=== PATIENT | male | born 1940 | race Caucasian/White ===

== ENCOUNTER 2017-04-23 17:23 | Inpatient (IN) | payer MEDICARE ==
[~2017-04-23] VITALS: Ht 175.3 cm; Wt 85.7 kg
[2017-04-23 17:52] LABS: BASOPHILS % (AUTO) 0.3 % (0.0-5.0); EOSINOPHILS % (AUTO) 1.5 % (0.0-8.0); HEMATOCRIT 41.6 % (42-54); LYMPHOCYTES % (AUTO) 22.1 % (21.0-51.0); MEAN CORPUSCULAR HEMOGLOBIN 33.5 pg (27.0-33.0); MEAN CORPUSCULAR HGB CONC 34.3 g/dL (32.0-36.0); MEAN CORPUSCULAR VOLUME 97.6 fL (79-99); MONOCYTES % (AUTO) 8.7 % (3.0-13.0); NEUTROPHILS % (AUTO) 67.4 % (40.0-77.0); PLATELET COUNT (AUTO) 168 K/uL (130-400); RED BLOOD CELL COUNT(AUTO) 4.26 MIL/uL (4.50-6.20); RED CELL DISTRIBUTION WIDTH 16.6 % (11.0-15.5); WHITE BLOOD COUNT (AUTO) 7.9 K/uL (4.8-10.8)
[2017-04-23] MEDS ORDERED: SODIUM CHLORIDE 0.9% 1000ML 1,000 ML IV ONE (17:56)
[2017-04-23 18:02] LABS: CREATININE 1.1 mg/dL (0.5-1.5); POTASSIUM 3.4 mmol/L (3.5-5.1)
[2017-04-23 18:21] LABS: BILIRUBIN,DIRECT 0.4 mg/dL (0.0-0.3)
[2017-04-23 18:22] LABS: ALBUMIN 3.3 g/dL (3.5-5.0)
[2017-04-23 20:28] LABS: OCCULT BLOOD STOOL SINGLE ONLY NEGATIVE (NEGATIVE)
[2017-04-23] MEDS ORDERED: THIAMINE HCL 100 MG/ML 2ML VIAL ONE (20:38)
[2017-04-23] MEDS ORDERED: M.V.I. IV [ADULT] 10 ML VIAL IV ONE (20:39)
[2017-04-23] MEDS ORDERED: FOLIC ACID 5 MG/ML 10 ML VIAL ONE (20:40)
[2017-04-24] MEDS ORDERED: HYDRALAZINE HCL 20 MG/ML VIAL IV PRN (00:45)
[2017-04-24] MEDS ORDERED: ONDANSETRON HCL 4 MG/2 ML VIAL IV PRN (00:45)
[2017-04-24] MEDS ORDERED: IPRATROPIUM/ALBUTEROL SULFATE 3 ML SOLUTION IH PRN ×2 (00:45→10:09)
[2017-04-24] MEDS ORDERED: POTASSIUM CHLORIDE 20 MEQ ERTAB PO PRN ×2 (00:45→10:15)
[2017-04-24] MEDS ORDERED: MORPHINE SULFATE 2 MG/ML 1ML SYG IVP PRN ×2 (00:45)
[2017-04-24] MEDS ORDERED: LORAZEPAM 2 MG/ML 1 ML VIAL IVP PRN ×2 (00:45→10:30)
[2017-04-24] MEDS ORDERED: ONDANSETRON HCL 4 MG/2 ML VIAL IVP PRN ×2 (00:45→10:15)
[2017-04-24] MEDS ORDERED: LORAZEPAM 2 MG/ML 1 ML VIAL ONE (01:25)
[2017-04-24] MEDS ORDERED: CHLORDIAZEPOXIDE HCL 25 MG CAP ONE (05:33)
[2017-04-24 06:00] LABS: ALBUMIN 2.4 g/dL (3.5-5.0); BILIRUBIN,TOTAL 0.7 mg/dL (0.2-1.0); CREATININE 0.9 mg/dL (0.5-1.5); MAGNESIUM 0.9 mg/dL (1.80-2.40); TOTAL PROTEIN, SERUM 5.2 g/dL (6.0-8.3)
[2017-04-24] MEDS ORDERED: CHLORDIAZEPOXIDE HCL 25 MG CAP PO SCH (06:00)
[2017-04-24 06:02] LABS: POTASSIUM 2.8 mmol/L (3.5-5.1)
[2017-04-24 06:03] LABS: BASOPHILS % (AUTO) 0.4 % (0.0-5.0); EOSINOPHILS % (AUTO) 3.4 % (0.0-8.0); HEMATOCRIT 32.8 % (42-54); LYMPHOCYTES % (AUTO) 21.6 % (21.0-51.0); MEAN CORPUSCULAR HEMOGLOBIN 34.9 pg (27.0-33.0); MEAN CORPUSCULAR HGB CONC 35.9 g/dL (32.0-36.0); MEAN CORPUSCULAR VOLUME 97.3 fL (79-99); MONOCYTES % (AUTO) 8.7 % (3.0-13.0); NEUTROPHILS % (AUTO) 65.9 % (40.0-77.0); PLATELET COUNT (AUTO) 127 K/uL (130-400); RED BLOOD CELL COUNT(AUTO) 3.37 MIL/uL (4.50-6.20); RED CELL DISTRIBUTION WIDTH 16.7 % (11.0-15.5); WHITE BLOOD COUNT (AUTO) 7.5 K/uL (4.8-10.8)
[2017-04-24] MEDS ORDERED: LIDOCAINE HCL-MPF 1% 2ML VIAL ONE (06:06)
[2017-04-24] MEDS ORDERED: POTASSIUM CHLORIDE 20MEQ/100ML 100 ML IV ONE ×2 (06:07→07:25)
[2017-04-24 08:37] VITALS: BP 142/66
[2017-04-24] MEDS ORDERED: THIAMINE HCL 100 MG/ML 2ML VIAL IM SCH (09:00)
[2017-04-24] MEDS ORDERED: SODIUM CHLORIDE 0.9% 1000ML 1,000 ML IV ONE (09:52)
[2017-04-24] MEDS ORDERED: POTASSIUM CHLORIDE 20MEQ/100ML 100 ML IV PRN (10:15)
[2017-04-24] MEDS ORDERED: GLUCAGON 1MG KIT 1 MG ML IM PRN (10:15)
[2017-04-24] MEDS ORDERED: MAGNESIUM SULFATE 1 GM in SODIUM CHLORIDE 0.9% 50 ML IV SCH (10:15)
[2017-04-24] MEDS ORDERED: ZOLPIDEM TARTRATE 5 MG TAB PO PRN (10:15)
[2017-04-24] MEDS ORDERED: POTASSIUM CHLORIDE 10% ELIXIR 20 MEQ/15 ML UDCUP PO PRN (10:15)
[2017-04-24] MEDS ORDERED: LIDOCAINE HCL-MPF 1% 2ML VIAL IJ PRN (10:15)
[2017-04-24] MEDS ORDERED: CLONIDINE HCL 0.1 MG TABLET PO PRN (10:15)
[2017-04-24] MEDS ORDERED: DEXTROSE 50%-WATER 50 ML DISP.SYRIN IV PRN (10:15)
[2017-04-24] MEDS: FOLIC ACID 1 MG TABLET PO SCH (10:27)
[2017-04-24] MEDS: MULTIVITAMIN TABLET PO SCH (10:27)
[2017-04-24] MEDS: SODIUM CHLORIDE 0.9% 1000ML 1,000 ML IV SCH (10:28)
[2017-04-24] MEDS: FAMOTIDINE 20MG TAB 20 MG TAB PO SCH ×2 (10:28→20:06)
[2017-04-24] MEDS ORDERED: POTA20TA12 PO (10:56)
[2017-04-24] MEDS ORDERED: LEVE500T8 PO (10:56)
[2017-04-24] MEDS ORDERED: LOSA1TAB37 PO (10:56)
[2017-04-24] MEDS ORDERED: ASPI-1026 PO (10:56)
[2017-04-24] MEDS ORDERED: TAMS0.4C32 PO (10:56)
[2017-04-24] MEDS ORDERED: ALLO300T2 PO (10:56)
[2017-04-24] MEDS ORDERED: METO50TA18 PO (10:56)
[2017-04-24] MEDS ORDERED: COLC0.6C3 PO (10:56)
[2017-04-24] MEDS ORDERED: ATOR10 PO (10:56)
[2017-04-24 11:03] VITALS: BP 128/59
[2017-04-24] MEDS: INSULIN R PO SSI SQ SCH ×3 (11:30→21:00)
[2017-04-24] MEDS: CHLORDIAZEPOXIDE HCL 25 MG CAP PO SCH ×2 (14:32→21:51)
[2017-04-24 15:22] VITALS: BP 140/66
[2017-04-24 15:52] LABS: PARTIAL THROMBOPLASTIN TIME 24.7 SEC (26.3-35.5); PROTHROMBIN TIME 10.5 SEC (9.6-11.6)
[2017-04-24] MEDS: ACETAMINOPHEN-CODEINE 300/30MG TAB PO PRN (18:36)
[2017-04-24] MEDS ORDERED: POTASSIUM CHLORIDE 20 MEQ ERTAB PO ONE (19:00)
[2017-04-24] MEDS: POTASSIUM CHLORIDE 20 MEQ ERTAB PO SCH (19:01)
[2017-04-24] MEDS: COLCHICINE 0.6 MG TABLET PO SCH (20:05)
[2017-04-24] MEDS: ATORVASTATIN CALCIUM 10 MG TABLET PO SCH (20:05)
[2017-04-24] MEDS: TAMSULOSIN HCL 0.4 MG CAP.ER.24H PO SCH (20:06)
[2017-04-24] MEDS: METOPROLOL TARTRATE 50 MG TAB PO SCH (20:06)
[2017-04-24] MEDS: LEVETIRACETAM 500 MG TABLET PO SCH (20:06)
[2017-04-24] MEDS ORDERED: FAMOTIDINE 20MG TAB 20 MG TAB PO SCH (21:00)
[2017-04-24 21:11] VITALS: BP 142/66
[2017-04-25] VITALS: BP 131/77
[2017-04-25] MEDS: SODIUM CHLORIDE 0.9% 1000ML 1,000 ML IV SCH ×4 (01:17→23:32)
[2017-04-25] MEDS: POTASSIUM CHLORIDE 10% ELIXIR 20 MEQ/15 ML UDCUP PO PRN ×3 (01:43→23:27)
[2017-04-25] MEDS ORDERED: ACETAMINOPHEN EXTRA STRENGTH 500 MG TABLET PO PRN (02:15)
[2017-04-25] MEDS ORDERED: PROMETHAZINE HCL 25 MG TABLET PO PRN (02:15)
[2017-04-25] MEDS ORDERED: LORAZEPAM 2 MG/ML 1 ML VIAL ONE (02:57)
[2017-04-25] MEDS ORDERED: LORAZEPAM 2 MG/ML 1 ML VIAL IM PRN (03:00)
[2017-04-25] MEDS ORDERED: LORAZEPAM 2 MG/ML 1 ML VIAL IM ONE (03:00)
[2017-04-25 05:11] LABS: BASOPHILS % (AUTO) 0.3 % (0.0-5.0); EOSINOPHILS % (AUTO) 5.8 % (0.0-8.0); HEMATOCRIT 32.1 % (42-54); LYMPHOCYTES % (AUTO) 28.2 % (21.0-51.0); MEAN CORPUSCULAR HEMOGLOBIN 33.7 pg (27.0-33.0); MEAN CORPUSCULAR HGB CONC 34.7 g/dL (32.0-36.0); MEAN CORPUSCULAR VOLUME 97.1 fL (79-99); MONOCYTES % (AUTO) 9.5 % (3.0-13.0); NEUTROPHILS % (AUTO) 56.2 % (40.0-77.0); PLATELET COUNT (AUTO) 126 K/uL (130-400); WHITE BLOOD COUNT (AUTO) 5.6 K/uL (4.8-10.8)
[2017-04-25] MEDS: CHLORDIAZEPOXIDE HCL 25 MG CAP PO SCH ×3 (05:17→20:56)
[2017-04-25 05:25] LABS: ALBUMIN 2.3 g/dL (3.5-5.0); BILIRUBIN,TOTAL 0.8 mg/dL (0.2-1.0); CREATININE 0.8 mg/dL (0.5-1.5); POTASSIUM 3.1 mmol/L (3.5-5.1); TOTAL PROTEIN, SERUM 4.9 g/dL (6.0-8.3)
[2017-04-25 06:03] VITALS: BP 125/53
[2017-04-25] MEDS: INSULIN R PO SSI SQ SCH ×4 (06:34→20:55)
[2017-04-25 07:00] VITALS: BP 111/60
[2017-04-25] MEDS ORDERED: M.V.I. IV [ADULT] 10 ML, THIAMINE HCL 100 MG, FOLIC ACID 1 MG in SODIUM CHLORIDE 0.9% 1... IV SCH (09:00)
[2017-04-25] MEDS ORDERED: FOLIC ACID 5 MG/ML 10 ML VIAL IV SCH (09:00)
[2017-04-25] MEDS ORDERED: THIAMINE HCL 100 MG/ML 2ML VIAL IVP SCH (09:00)
[2017-04-25] MEDS ORDERED: THIAMINE HCL 100 MG TABLET PO SCH (10:01)
[2017-04-25] MEDS: ALLOPURINOL 300 MG TABLET PO SCH (10:41)
[2017-04-25] MEDS: COLCHICINE 0.6 MG TABLET PO SCH ×2 (10:41→20:22)
[2017-04-25] MEDS: MULTIVITAMIN TABLET PO SCH (10:41)
[2017-04-25] MEDS: LOSARTAN/HYDROCHLOROTHIAZIDE 50-12.5MG TABLET PO SCH (10:41)
[2017-04-25] MEDS: LEVETIRACETAM 500 MG TABLET PO SCH ×2 (10:41→20:22)
[2017-04-25] MEDS: POTASSIUM CHLORIDE 20 MEQ ERTAB PO SCH ×2 (10:42→20:22)
[2017-04-25] MEDS: METOPROLOL TARTRATE 50 MG TAB PO SCH ×2 (10:42→20:22)
[2017-04-25] MEDS: FAMOTIDINE 20MG TAB 20 MG TAB PO SCH ×2 (10:42→20:22)
[2017-04-25] MEDS: ASPIRIN 325 MG TABLET PO SCH (10:42)
[2017-04-25] MEDS: FOLIC ACID 1 MG TABLET PO SCH (10:42)
[2017-04-25 11:00] VITALS: BP 128/61
[2017-04-25 15:32] VITALS: BP 125/60
[2017-04-25] MEDS ORDERED: PEG 3350/NA SULF,BICARB,CL/KCL 4000 ML SOLN PO SCH (17:00)
[2017-04-25 20:00] VITALS: BP 112/60
[2017-04-25] MEDS: ATORVASTATIN CALCIUM 10 MG TABLET PO SCH (20:22)
[2017-04-25] MEDS: TAMSULOSIN HCL 0.4 MG CAP.ER.24H PO SCH (20:22)
[2017-04-26] VITALS (24 sets, daily range): BP systolic 91–152; BP diastolic 44–97
[2017-04-26] MEDS: LORAZEPAM 2 MG/ML 1 ML VIAL IVP PRN ×2 (02:10→06:36)
[2017-04-26] MEDS: CHLORDIAZEPOXIDE HCL 25 MG CAP PO SCH ×4 (05:04→21:53)
[2017-04-26] MEDS: INSULIN R PO SSI SQ SCH ×4 (06:11→20:10)
[2017-04-26 06:52] LABS: HEMATOCRIT 33.7 % (42-54); MEAN CORPUSCULAR HEMOGLOBIN 34.8 pg (27.0-33.0); MEAN CORPUSCULAR HGB CONC 35.3 g/dL (32.0-36.0); MEAN CORPUSCULAR VOLUME 98.4 fL (79-99); PLATELET COUNT (AUTO) 141 K/uL (130-400); RED BLOOD CELL COUNT(AUTO) 3.43 MIL/uL (4.50-6.20); RED CELL DISTRIBUTION WIDTH 17.4 % (11.0-15.5)
[2017-04-26 07:04] LABS: ALBUMIN 2.5 g/dL (3.5-5.0); BILIRUBIN,TOTAL 0.9 mg/dL (0.2-1.0); CREATININE 0.7 mg/dL (0.5-1.5); MAGNESIUM 1.2 mg/dL (1.80-2.40); POTASSIUM 3.4 mmol/L (3.5-5.1); TOTAL PROTEIN, SERUM 5.3 g/dL (6.0-8.3)
[2017-04-26] MEDS ORDERED: HALOPERIDOL LACTATE 5 MG/ML VIAL IV SCH (07:30)
[2017-04-26] MEDS ORDERED: POTASSIUM PHOS 15 mMOL+NS250ML 250 ML IV SCH (07:30)
[2017-04-26 07:59] LABS: BAND NEUTROPHILS % (MANUAL) 1 % (0-2); EOSINOPHILS % (MANUAL) 8 % (1-6); LYMPHOCYTES % (MANUAL) 22 % (22-44); MAN.DIFF COMMENT-IMPRESSION MANUAL DIFFERENTIAL; MONOCYTES % (MANUAL) 10 % (2-9); SEGMENTED NEUTROPHILS % 59 % (40-70)
[2017-04-26 08:00] LABS: PLATELET MORPHOLOGY COMMENT ADEQUATE
[2017-04-26] MEDS: MAGNESIUM 2GM PREMIX 50ML 50 ML IV SCH (08:51)
[2017-04-26] MEDS: FOLIC ACID 1 MG TABLET PO SCH (09:00)
[2017-04-26] MEDS: HALOPERIDOL LACTATE 5 MG/ML VIAL IV PRN ×3 (09:24→23:04)
[2017-04-26] MEDS: LIDOCAINE HCL-MPF 1% 2ML VIAL IVP PRN ×2 (10:47→18:40)
[2017-04-26] MEDS: POTASSIUM CHLORIDE 20MEQ/100ML 100 ML IV PRN ×2 (10:47→18:41)
[2017-04-26] MEDS ORDERED: PROPOFOL 10 MG/ML 20ML VIAL IV ONE ×2 (12:28→12:42)
[2017-04-26] MEDS: SODIUM CHLORIDE 0.9% IV SCH (14:12)
[2017-04-26] MEDS: THIAMINE HCL IV SCH (14:12)
[2017-04-26] MEDS: FOLIC ACID IV SCH (14:12)
[2017-04-26] MEDS: LEVETIRACETAM 500 MG TABLET PO SCH ×2 (15:51→20:08)
[2017-04-26] MEDS: ASPIRIN 325 MG TABLET PO SCH (15:51)
[2017-04-26] MEDS: LOSARTAN/HYDROCHLOROTHIAZIDE 50-12.5MG TABLET PO SCH (15:51)
[2017-04-26] MEDS: COLCHICINE 0.6 MG TABLET PO SCH ×2 (15:52→20:08)
[2017-04-26] MEDS: FAMOTIDINE 20MG TAB 20 MG TAB PO SCH ×2 (15:52→20:10)
[2017-04-26] MEDS: MULTIVITAMIN TABLET PO SCH (15:52)
[2017-04-26] MEDS: METOPROLOL TARTRATE 50 MG TAB PO SCH ×2 (15:52→20:08)
[2017-04-26] MEDS: ALLOPURINOL 300 MG TABLET PO SCH (15:52)
[2017-04-26] MEDS: POTASSIUM CHLORIDE 20 MEQ ERTAB PO SCH ×2 (15:53→20:10)
[2017-04-26] MEDS: TAMSULOSIN HCL 0.4 MG CAP.ER.24H PO SCH (20:08)
[2017-04-26] MEDS: ATORVASTATIN CALCIUM 10 MG TABLET PO SCH (20:08)
[2017-04-26] MEDS: ACETAMINOPHEN-CODEINE 300/30MG TAB PO PRN (20:09)
[2017-04-27] VITALS (8 sets, daily range): BP systolic 98–130; BP diastolic 46–66
[2017-04-27] MEDS: ACETAMINOPHEN-CODEINE 300/30MG TAB PO PRN (03:30)
[2017-04-27 05:03] LABS: BASOPHILS % (AUTO) 0.3 % (0.0-5.0); HEMATOCRIT 32.7 % (42-54); LYMPHOCYTES % (AUTO) 29.4 % (21.0-51.0); MEAN CORPUSCULAR HEMOGLOBIN 33.8 pg (27.0-33.0); MEAN CORPUSCULAR HGB CONC 34.4 g/dL (32.0-36.0); MEAN CORPUSCULAR VOLUME 98.2 fL (79-99); MONOCYTES % (AUTO) 9.7 % (3.0-13.0); NEUTROPHILS % (AUTO) 50.6 % (40.0-77.0); PLATELET COUNT (AUTO) 131 K/uL (130-400); RED BLOOD CELL COUNT(AUTO) 3.33 MIL/uL (4.50-6.20); RED CELL DISTRIBUTION WIDTH 17.1 % (11.0-15.5); WHITE BLOOD COUNT (AUTO) 5.7 K/uL (4.8-10.8)
[2017-04-27] MEDS: CHLORDIAZEPOXIDE HCL 25 MG CAP PO SCH ×3 (05:03→20:53)
[2017-04-27 05:23] LABS: CREATININE 0.6 mg/dL (0.5-1.5); MAGNESIUM 1.5 mg/dL (1.80-2.40); PHOSPHORUS 3.1 mg/dL (2.5-4.9)
[2017-04-27] MEDS: INSULIN R PO SSI SQ SCH ×4 (05:54→20:55)
[2017-04-27] MEDS: HALOPERIDOL LACTATE 5 MG/ML VIAL IV PRN (07:41)
[2017-04-27] MEDS: METOPROLOL TARTRATE 50 MG TAB PO SCH ×2 (08:31→20:55)
[2017-04-27] MEDS: POTASSIUM CHLORIDE 20 MEQ ERTAB PO SCH ×2 (09:00→20:53)
[2017-04-27] MEDS: FOLIC ACID 1 MG TABLET PO SCH (09:58)
[2017-04-27] MEDS: THIAMINE HCL 100 MG TABLET PO SCH (09:58)
[2017-04-27] MEDS: COLCHICINE 0.6 MG TABLET PO SCH ×2 (09:58→20:53)
[2017-04-27] MEDS: LOSARTAN/HYDROCHLOROTHIAZIDE 50-12.5MG TABLET PO SCH (09:58)
[2017-04-27] MEDS: ALLOPURINOL 300 MG TABLET PO SCH (09:58)
[2017-04-27] MEDS: ASPIRIN 325 MG TABLET PO SCH (09:59)
[2017-04-27] MEDS: LEVETIRACETAM 500 MG TABLET PO SCH ×2 (09:59→20:53)
[2017-04-27] MEDS: MULTIVITAMIN TABLET PO SCH (09:59)
[2017-04-27] MEDS: FAMOTIDINE 20MG TAB 20 MG TAB PO SCH ×2 (09:59→20:52)
[2017-04-27] MEDS: SODIUM CHLORIDE 0.9% IV SCH (14:29)
[2017-04-27] MEDS: FOLIC ACID IV SCH (14:29)
[2017-04-27] MEDS: THIAMINE HCL IV SCH (14:29)
[2017-04-27] MEDS: ATORVASTATIN CALCIUM 10 MG TABLET PO SCH (20:53)
[2017-04-27] MEDS: TAMSULOSIN HCL 0.4 MG CAP.ER.24H PO SCH (20:53)
[2017-04-28 03:26] LABS: HEMATOCRIT 34.5 % (42-54); MEAN CORPUSCULAR HEMOGLOBIN 33.8 pg (27.0-33.0); MEAN CORPUSCULAR HGB CONC 34.4 g/dL (32.0-36.0); MEAN CORPUSCULAR VOLUME 98.2 fL (79-99); PLATELET COUNT (AUTO) 132 K/uL (130-400); RED BLOOD CELL COUNT(AUTO) 3.51 MIL/uL (4.50-6.20); WHITE BLOOD COUNT (AUTO) 6.9 K/uL (4.8-10.8)
[2017-04-28 03:35] LABS: CREATININE 0.8 mg/dL (0.5-1.5); POTASSIUM 3.9 mmol/L (3.5-5.1)
[2017-04-28 04:13] VITALS: BP 141/71
[2017-04-28] MEDS: CHLORDIAZEPOXIDE HCL 25 MG CAP PO SCH ×3 (05:59→23:03)
[2017-04-28] MEDS: INSULIN R PO SSI SQ SCH ×3 (06:00→21:00)
[2017-04-28 07:00] VITALS: BP 138/65
[2017-04-28] MEDS: THIAMINE HCL IV SCH (09:00)
[2017-04-28] MEDS: SODIUM CHLORIDE 0.9% IV SCH (09:00)
[2017-04-28] MEDS: FOLIC ACID IV SCH (09:00)
[2017-04-28] MEDS: FOLIC ACID 1 MG TABLET PO SCH (10:47)
[2017-04-28] MEDS: FAMOTIDINE 20MG TAB 20 MG TAB PO SCH ×2 (10:47→23:03)
[2017-04-28] MEDS: THIAMINE HCL 100 MG TABLET PO SCH (10:47)
[2017-04-28] MEDS: POTASSIUM CHLORIDE 20 MEQ ERTAB PO SCH ×2 (10:48→23:03)
[2017-04-28] MEDS: METOPROLOL TARTRATE 50 MG TAB PO SCH ×2 (10:48→21:00)
[2017-04-28] MEDS: LEVETIRACETAM 500 MG TABLET PO SCH ×2 (10:48→23:02)
[2017-04-28] MEDS: COLCHICINE 0.6 MG TABLET PO SCH ×2 (10:49→23:02)
[2017-04-28] MEDS: LOSARTAN/HYDROCHLOROTHIAZIDE 50-12.5MG TABLET PO SCH (10:49)
[2017-04-28] MEDS: ASPIRIN 325 MG TABLET PO SCH (10:49)
[2017-04-28] MEDS: MULTIVITAMIN TABLET PO SCH (10:49)
[2017-04-28] MEDS: ALLOPURINOL 300 MG TABLET PO SCH (10:49)
[2017-04-28 11:00] VITALS: BP 122/57
[2017-04-28 16:00] VITALS: BP 101/60
[2017-04-28 19:00] VITALS: BP 126/60
[2017-04-28 23:00] VITALS: BP 140/60
[2017-04-28] MEDS: ATORVASTATIN CALCIUM 10 MG TABLET PO SCH (23:02)
[2017-04-28] MEDS: TAMSULOSIN HCL 0.4 MG CAP.ER.24H PO SCH (23:03)
[2017-04-29 03:00] VITALS: BP 128/64
[2017-04-29] MEDS: INSULIN R PO SSI SQ SCH ×3 (05:45→21:00)
[2017-04-29 08:00] VITALS: BP 138/66
[2017-04-29] MEDS: FOLIC ACID IV SCH (09:00)
[2017-04-29] MEDS: SODIUM CHLORIDE 0.9% IV SCH (09:00)
[2017-04-29] MEDS: THIAMINE HCL IV SCH (09:00)
[2017-04-29] MEDS: FAMOTIDINE 20MG TAB 20 MG TAB PO SCH ×2 (09:30→21:50)
[2017-04-29] MEDS: FOLIC ACID 1 MG TABLET PO SCH (09:30)
[2017-04-29] MEDS: ALLOPURINOL 300 MG TABLET PO SCH (09:30)
[2017-04-29] MEDS: LEVETIRACETAM 500 MG TABLET PO SCH ×2 (09:31→21:51)
[2017-04-29] MEDS: POTASSIUM CHLORIDE 20 MEQ ERTAB PO SCH ×2 (09:31→21:50)
[2017-04-29] MEDS: THIAMINE HCL 100 MG TABLET PO SCH (09:31)
[2017-04-29] MEDS: COLCHICINE 0.6 MG TABLET PO SCH ×2 (09:31→21:50)
[2017-04-29] MEDS: ASPIRIN 325 MG TABLET PO SCH (09:31)
[2017-04-29] MEDS: MULTIVITAMIN TABLET PO SCH (09:32)
[2017-04-29] MEDS: METOPROLOL TARTRATE 50 MG TAB PO SCH ×2 (09:32→21:00)
[2017-04-29] MEDS: LOSARTAN/HYDROCHLOROTHIAZIDE 50-12.5MG TABLET PO SCH (09:33)
[2017-04-29 11:00] VITALS: BP 128/53
[2017-04-29 16:00] VITALS: BP 106/60
[2017-04-29 20:00] VITALS: BP 115/62
[2017-04-29] MEDS: TAMSULOSIN HCL 0.4 MG CAP.ER.24H PO SCH (21:51)
[2017-04-29] MEDS: ATORVASTATIN CALCIUM 10 MG TABLET PO SCH (21:51)
[2017-04-30] VITALS (7 sets, daily range): BP systolic 102–128; BP diastolic 54–68
[2017-04-30] MEDS: INSULIN R PO SSI SQ SCH ×4 (06:34→20:26)
[2017-04-30] MEDS: LOSARTAN/HYDROCHLOROTHIAZIDE 50-12.5MG TABLET PO SCH (09:00)
[2017-04-30] MEDS: METOPROLOL TARTRATE 50 MG TAB PO SCH ×2 (09:00→20:24)
[2017-04-30] MEDS: MULTIVITAMIN TABLET PO SCH (11:48)
[2017-04-30] MEDS: LEVETIRACETAM 500 MG TABLET PO SCH ×2 (11:48→20:24)
[2017-04-30] MEDS: COLCHICINE 0.6 MG TABLET PO SCH ×2 (11:48→20:24)
[2017-04-30] MEDS: ALLOPURINOL 300 MG TABLET PO SCH (11:48)
[2017-04-30] MEDS: FOLIC ACID 1 MG TABLET PO SCH (11:48)
[2017-04-30] MEDS: ASPIRIN 325 MG TABLET PO SCH (11:48)
[2017-04-30] MEDS: FAMOTIDINE 20MG TAB 20 MG TAB PO SCH ×2 (11:49→20:24)
[2017-04-30] MEDS: THIAMINE HCL 100 MG TABLET PO SCH (11:49)
[2017-04-30] MEDS: POTASSIUM CHLORIDE 20 MEQ ERTAB PO SCH ×2 (17:07→20:23)
[2017-04-30] MEDS: TAMSULOSIN HCL 0.4 MG CAP.ER.24H PO SCH (20:23)
[2017-04-30] MEDS: ATORVASTATIN CALCIUM 10 MG TABLET PO SCH (20:23)
[2017-04-30] MEDS: LORAZEPAM 2 MG/ML 1 ML VIAL IVP PRN (20:33)
[2017-05-01 04:00] VITALS: BP 102/57
[2017-05-01 04:12] LABS: CREATININE 0.9 mg/dL (0.5-1.5); MAGNESIUM 1.3 mg/dL (1.80-2.40); PHOSPHORUS 3.1 mg/dL (2.5-4.9); POTASSIUM 3.5 mmol/L (3.5-5.1)
[2017-05-01] MEDS: POTASSIUM CHLORIDE 10% ELIXIR 20 MEQ/15 ML UDCUP PO PRN (04:36)
[2017-05-01] MEDS: MAGNESIUM 2GM PREMIX 50ML 50 ML IV SCH (04:37)
== END 2017-05-01 08:00 | disposition home or self-care (01) | DRG 392 ==
LOC: EDH 17:23 → OBSVTOIN 19:55 → EDHIP 19:55 → 4AH 04-24 07:58 → 3AH 04-25 01:02
PROVIDERS: ADMIT Family Medicine; ATTEND Family Medicine
PROC: 0DBE8ZX Excision of Large Intestine, Via Natural or Artificial Opening Endoscopic, Diagnostic (ICD-10-PCS; principal; 2017-04-26)
DX: K52.9 Noninfective gastroenteritis and colitis, unspecified (principal); F10.231 Alcohol dependence with withdrawal delirium; E86.0 Dehydration; E44.1 Mild protein-calorie malnutrition; G40.909 Epilepsy, unspecified, not intractable, without status epilepticus; I10 Essential (primary) hypertension; E78.5 Hyperlipidemia, unspecified; N40.0 Benign prostatic hyperplasia without lower urinary tract symptoms; K64.8 Other hemorrhoids; F17.200 Nicotine dependence, unspecified, uncomplicated; M10.9 Gout, unspecified; Z68.27 Body mass index [BMI] 27.0-27.9, adult
CPT/HCPCS: 36415; 74176; 80048; 80053; 80076; 82270; 82948; 83690; 83735; 84100; 84132; 85025; 85027; 85610; 85730; 87046; 87177; 87205; 87324; 87507; 88305; 92610; 94664; G0480; J0360; J1630; J2060; J2704; J3411; J3475; J3480; J3490; J7030

== ENCOUNTER 2017-05-16 16:07 | Emergency (ER) | payer MEDICARE ==
[~2017-05-16 16:07] MED LIST: ALLO300T2 PO; ASPI-1026 PO; ATOR10 PO; COLC0.6C3 PO; LEVE500T8 PO; LOSA1TAB37 PO; METO50TA18 PO; POTA20TA12 PO; TAMS0.4C32 PO
[2017-05-16 16:32] LABS: BASOPHILS % (AUTO) 0.5 % (0.0-5.0); EOSINOPHILS % (AUTO) 1.4 % (0.0-8.0); HEMATOCRIT 36.6 % (42-54); LYMPHOCYTES % (AUTO) 14.2 % (21.0-51.0); MEAN CORPUSCULAR HGB CONC 34.1 g/dL (32.0-36.0); MEAN CORPUSCULAR VOLUME 99.8 fL (79-99); MONOCYTES % (AUTO) 6.2 % (3.0-13.0); NEUTROPHILS % (AUTO) 77.7 % (40.0-77.0); NUCLEATED RED BLOOD CELLS 0.1 % (0.0-0.19); PLATELET COUNT (AUTO) 170 K/uL (130-400); RED BLOOD CELL COUNT(AUTO) 3.66 MIL/uL (4.50-6.20); RED CELL DISTRIBUTION WIDTH 17.1 % (11.0-15.5)
[2017-05-16 16:41] LABS: CREATININE 0.8 mg/dL (0.5-1.5); POTASSIUM 3.8 mmol/L (3.5-5.1)
[2017-05-16 16:46] LABS: BILIRUBIN,TOTAL 0.7 mg/dL (0.2-1.0); TOTAL PROTEIN, SERUM 6.3 g/dL (6.0-8.3)
[2017-05-16] MEDS ORDERED: ONDANSETRON HCL MDV 20ML 2 MG/ML VIAL ONE (16:46)
[2017-05-16] MEDS ORDERED: MORPHINE SULFATE 4 MG/1ML SYG ONE (16:46)
[2017-05-16 17:20] LABS: CREATINE KINASE MB 0.6 ng/mL (0.5-3.6)
[2017-05-16 18:51] LABS: APPEARANCE,URINE Clear (CLEAR); BILIRUBIN,URINE Negative (NEGATIVE); COLOR,URINE Yellow (YELLOW); GLUCOSE, URINE (UA) Negative (NEGATIVE); KETONES,URINE Negative (NEGATIVE); LEUKOCYTE ESTERASE ,URINE Negative (NEGATIVE); NITRATE,URINE Negative (NEGATIVE); OCCULT BLOOD,URINE Negative (NEGATIVE); PROTEIN,URINE Negative (NEGATIVE); UROBILINOGEN,URINE 0.2 mg/dL (0.2-1.0)
== END 2017-05-16 19:07 | disposition home or self-care (01) ==
LOC: EDH 16:07
DX: M54.5 Low back pain (principal); E78.5 Hyperlipidemia, unspecified; I10 Essential (primary) hypertension
CPT/HCPCS: 36415; 74176; 80053; 81003; 82550; 82553; 83690; 84484; 85025; 93005; 96361; 96374; 96375; 99285; J2270